=== PATIENT | female | born 1990 ===

== ENCOUNTER 2022-06-11 18:10 | Emergency (ER) | payer MEDICAID ==
[~2022-06-11] VITALS: Ht 167.6 cm; Wt 79.5 kg
[2022-06-11 18:18] VITALS: BP 145/73
== END 2022-06-11 18:31 | disposition left against medical advice (07) ==
LOC: EMS 18:10
DX: Z53.21 Procedure and treatment not carried out due to patient leaving prior to being seen by health care provider (principal)